=== PATIENT | female | born 1930 | race Caucasian/White ===

== ENCOUNTER → 2017-12-01 | Outpatient (CLI) | payer MEDICARE, OTHER ==
[~2017-12-01] MED LIST: ACET325 PO; ACET500 PO; ACTONEL; ALPR.25 PO; AMIT25 PO; AMLO5 PO; ASPI81EC PO; ASPIRIN EC PO; ATEN25 PO; ATEN50; ATEN50 PO; Amitiza8 MCG PO; Artificial Tear15 M4 UD; Aspirin EC81 MG PO; BACL10 PO; CALCAVITD PO; CENTRUM SILVER1 EAC2 PO; CHOL10002 PO; CLON.1 PO; Calcium 600 +1 EAC1 PO; DOCU100 PO; ERGO400 PO; FAMO20 PO; FERR325 PO; FISH1000 PO; FURO20 PO; GABA100 PO; GABA300 PO; HYDACE10A; HYDACE10A PO; HYDCHL12.5 PO; HYDR10 PO; Hydrochloroth12.5 MG PO; KETOPROFEN PO; LAVAP17G; LAVAP17G PO; LAXATIVES; LEVSOD25 PO; LIDO5TP TOP; LINZESS145 MCG PO; LISI20 PO; LORA.5 PO; LOVA20 PO; LOVA40 PO; MAGCIT300 PO; MECL25 PO; METO25ER PO; MICROZIDE12.5 MG; MILN100T PO; MIRALAX17 GM PO; MIRT30 PO; MOM PO; MORP15ER PO; MORP30ER PO; MS Contin15 MG PO; MULVITMIND PO; Milk Of Ma400 MG/5 M PO; NAPR500; NAPR500 PO; NIFE10 SL; OMEPRAZOLE MAGN20 MG PO; OXYC5 PO; POLY17UD PO; POTA10T PO; PRAM.125 PO; PRED5 PO; Remeron45 MG PO; SERT50 PO; STOOL SOFTENER1 EAC1 PO; TELM20 PO; TELM80; TELM80 PO; TRAZ50 PO; VIT D3 PO; VITAMINS; Voltaren100 GM TP; XANAX; XARELTO10 MG PO; ZESTRIL40 MG PO; ZOLP10; [UNRECOGNIZED DRUG - REMARK]
[2017-12-02 13:36] LABS: Source, Urine Clean Catch
[2017-12-02 13:53] LABS: Bilirubin, Urine Neg (Neg); Blood, Urine Neg (Neg); Glucose Qualitative, Urine Neg (Neg); Ketones, Urine Neg (Neg); Leukocyte Esterase, Urine 1+ (Neg); Nitrite, Urine Neg (Neg); Protein, Urine 2+ (Neg); Specific Gravity, Urine 1.015 (1.003-1.022); Urobilinogen, Urine NORM (Normal)
[2017-12-02 14:00] LABS: Appearance, Urine Clear (Clear); Color, Urine Yellow (P-Yellow)
[2017-12-02 14:01] LABS: Bacteria Few /hpf; Red Blood Cells, Urine 0-2 /hpf (0-2); Squamous Epithelial Cells Rare /hpf (Few)
== END | disposition home or self-care (01) ==
LOC: LAB 08:55
PROVIDERS: Internal Medicine
DX: N39.0 Urinary tract infection, site not specified (principal)
CPT/HCPCS: 81001; 87086